=== PATIENT | male | born 1980 | race Caucasian/White ===

== ENCOUNTER 2016-07-12 10:26 | Emergency (ER) | payer OTHER ==
[~2016-07-12] VITALS: Ht 175.3 cm; Wt 173.0 kg
[2016-07-12 10:38] VITALS: Ht 175.3 cm; Wt 173.0 kg
[2016-07-12 12:47] LABS: ADD SCAN DIFF NO
--- NOTE | 2016-07-12 12:52 | ERD ---
ER Documentation Chief Complaint Date/Time DATE: 07/12/16 TIME: 12:48 Chief Complaint COUGH & SOB SINCE TUESDAY HPI Patient is a 35-year-old male who presents to the ED with palpitations and shortness of breath on and off for the last 2 days. He states that on Tuesday developed soreness in his arm and left-sided abdomen and chest. He states that he feels a "flutter" occasionally. He denies any exacerbating factors. He states that he does have anxiety and has had panic attacks in the past. Denies nausea, vomiting or diarrhea. Denies fever or night sweats. He states that he has a family history of diabetes but denies any heart conditions in the family but is concerned that he might have pre diabetes. He states that he has gained a lot of weight in the last year. He denies leg pain or swelling, decenies recent surgery or travel. Denies numbness or tingling. Denies abdominal pain. ROS All systems reviewed and are negative except as per history of present illness. Medications Home Meds Active Scripts Naproxen* (Naprosyn*) 500 Mg Tablet, 500 MG PO BID Y for PAIN AND/OR INFLAMMATION, #30 TAB Prov:ALISON COULTER PA-C 07/12/16 PMhx/Soc Medical and Surgical Hx: pt denies Medical Hx, pt denies Surgical Hx History of Surgery: No Anesthesia Reaction: No Hx Neurological Disorder: No Hx Respiratory Disorders: No Hx Cardiac Disorders: No Hx Psychiatric Problems: No Hx Miscellaneous Medical Probl: Yes (OBESITY) Hx Alcohol Use: No Hx Substance Use: No Hx Tobacco Use: No Smoking Status: Never smoker FmHx Family History: diabetes Physical Exam Vitals Vital Signs Date Time Temp Pulse Resp B/P Pulse Ox O2 Delivery O2 Flow Rate FiO2 07/12/16 14:02 98.7 77 18 154/88 100 Room Air 07/12/16 10:38 98.7 79 20 173/90 100 Physical Exam GENERAL: Well-developed, well-nourished male. Appears in no acute distress. HEAD: Normocephalic, atraumatic. EYES: Pupils are equally reactive bilaterally. EOMs grossly intact. No conjunctival erythema. ENT: Moist mucous membranes. No uvula deviation. No kissing tonsils. No exudates. NECK: Supple. No lymphadenopathy or thyromegaly. No meningismus. negative kernig. negative brudinski. LUNG: Clear to auscultation bilaterally. No rhonchi, wheezing, rales or coarse breath sounds. HEART: Regular rate and rhythm. No murmurs, rubs or gallops. Extremities: Equal pulses bilaterally. No peripheral clubbing, cyanosis or edema. No unilateral leg swelling. negative tutu sign. NEUROLOGIC: Alert and oriented. Moving all four extremities. 5/5 strength in all extremities. Normal speech. Steady gait. SKIN: Normal color. Warm and dry. No rashes or lesions. Capillary refill < 2 seconds Result Diagram: 07/12/16 1220 07/12/16 1220 Results 24 hrs Laboratory Tests Test 07/12/16 12:20 White Blood Count 9.010^3/ul Red Blood Count 4.9910^6/ul Hemoglobin 14.4g/dl Hematocrit 43.9% Mean Corpuscular Volume 88.0fl Mean Corpuscular Hemoglobin 28.9pg Mean Corpuscular Hemoglobin Concent 32.8g/dl Red Cell Distribution Width 13.1% Platelet Count 92241^3/UL Mean Platelet Volume 9.6fl Neutrophils % 64.1% Lymphocytes % 23.7% Monocytes % 8.5% Eosinophils % 3.0% Basophils % 0.4% Nucleated Red Blood Cells % 0.0/100WBC Neutrophils # 5.810^3/ul Lymphocytes # 2.110^3/ul Monocytes # 0.810^3/ul Eosinophils # 0.310^3/ul Basophils # 0.010^3/ul Nucleated Red Blood Cells # 0.010^3/ul Sodium Level 141mmol/L Potassium Level 4.1mmol/L Chloride Level 102mmol/L Carbon Dioxide Level 26mmol/L Anion Gap 17 Blood Urea Nitrogen 16mg/dl Creatinine 0.91mg/dl Glucose Level 95mg/dl Calcium Level 9.6mg/dl Procedures/MDM ER COURSE: I kept the patient and/or family informed of laboratory and diagnostic imaging results throughout the emergency room course. IMAGING STUDIES EKG performed, read by Dr. [email or web address] 66 bpm, normal sinus rhythm, normal axis, no acute ST segment changes, no T wave inversion [place] [id number] Radiology Main Line: [phone] DIAGNOSTIC IMAGING REPORT Patient: JACLYN CHOUDHARY : 1980 Age: 35 Sex: M MR #: [id number] DOS: 07/12/16 1204 Ordering MD: ALISON COULTER PA-C Location: [facility] Room/Bed: PROCEDURE: XR Chest. CLINICAL INDICATION: Shortness of breath/palpitations TECHNIQUE: Chest PA. COMPARISON: No comparison available. FINDINGS: The mediastinal structures are unremarkable. The heart is normal in size and configuration. The pulmonary vascularity is normal. The lung disla are unremarkable. No consolidation is identified. The pleural spaces are unremarkable. The axial skeleton is unremarkable. IMPRESSION: No active intrathoracic disease. RPTAT: HGDB .Vj Dawkins MD, MD Date Time Electronically viewed and signed by .Vj Dawkins MD, MD on 07/12/2016 13:17 .B/ CC: ALISON COULTER PA-C MEDICAL DECISION MAKING: This is a 35-year-old male who presents with shortness of breath and muscle soreness and stress on and off 2 days. Vital signs were reviewed. Patient is afebrile. Patient is not hypoxic. Patient also complains of palpitations. His EKG was unremarkable. His x-ray was unremarkable. His blood work was within normal limits, no signs of diabetes, hypo-or hyperglycemia, anemia or electrolyte disturbances. Low suspicion for ACS, PE, AAA, dissection, DVT. Low suspicion for pneumonia, PE, pneumothorax, ACS, epiglottitis, obstruction, TB, pertussis, meningitis, sepsis. Low suspicion for cardiac emergency. Low suspicion for dislocation, fracture, septic joint, compartment syndrome, osteomyelitis, avascular necrosis, DVT, Achilles tendon rupture, cellulitis. At this time, unable to rule out any tendon and ligament injuries. DISCHARGE: At this time, patient is stable for discharge and outpatient management with no new complaints during the ER course. Patient was sent home with Ketan, copy of imaging studies as well as education on diabetes prevention. Discussed at length with patient nutrition education and lifestyle management.. Patient will be discharged home with instructions to recheck for new or worsening symptoms such as fever, nausea, weakness, LOC and to follow up with primary care in the next 1-2 days. Patient was advised to return to the ER for any new or worsening symptoms. Plan was discussed and patient and/or family understands and agrees. Home instructions were given. Departure Diagnosis: Primary Impression: Shortness of breath Condition: Stable ALISON COULTER PA-C Jul 12, 2016 12:52
[2016-07-12 12:57] LABS: BASOPHILS % 0.4 % (0.0-2.0); EOSINOPHILS # 0.3 10^3/ul (0.0-0.5); HEMATOCRIT 43.9 % (42.0-52.0); HEMOGLOBIN 14.4 g/dl (14.0-18.0); LYMPHOCYTES # 2.1 10^3/ul (0.8-2.9); LYMPHOCYTES % 23.7 % (15.0-51.0); MEAN CORPUSCULAR HEMOGLOBIN 28.9 pg (29.0-33.0); MEAN CORPUSCULAR HGB CONC 32.8 g/dl (32.0-37.0); MEAN PLATELET VOLUME 9.6 fl (7.4-10.4); MONOCYTE # 0.8 10^3/ul (0.3-0.9); MONOCYTES % 8.5 % (0.0-11.0); NEUTROPHIL # 5.8 10^3/ul (1.6-7.5); NEUTROPHILS % 64.1 % (39.0-77.0); PLATELET COUNT 289 10^3/UL (140-415); RED BLOOD COUNT 4.99 10^6/ul (4.70-6.10); RED CELL DISTRIBUTION WIDTH 13.1 % (11.5-14.5)
[2016-07-12 13:15] LABS: POTASSIUM 4.1 mmol/L (3.5-5.1)
[2016-07-12 13:17] LABS: CREATININE 0.91 mg/dl (0.61-1.24)
[2016-07-12 13:18] LABS: CALCIUM 9.6 mg/dl (8.4-10.2)
--- NOTE | 2016-07-12 13:18 | RADRPT ---
PROCEDURE: XR Chest. CLINICAL INDICATION: Shortness of breath/palpitations TECHNIQUE: Chest PA. COMPARISON: No comparison available. FINDINGS: The mediastinal structures are unremarkable. The heart is normal in size and configuration. The pu lmonary vascularity is normal. The lung disla are unremarkable. No consolidation is identified. The pleural spaces are unremarkable. The axial skeleton is unremarkable. IMPRESSION: No active intrathoracic disease. RPTAT: HGDB .Vj Dawkins MD, MD Date Time Electronically viewed and signed by .Vj Dawkins MD, on 07/12/2016 13:17 .B/
[2016-07-12] MEDS ORDERED: NAPR-260 PO (13:39)
[2016-07-12 14:02] VITALS: BP 154/88; PULSE 77; RESP 18; TEMP 98.7
== END 2016-07-12 14:10 | disposition home or self-care (01) ==
LOC: FTE 10:26
DX: R06.02 Shortness of breath (principal); E66.9 Obesity, unspecified; Z68.43 Body mass index [BMI] 50.0-59.9, adult
CPT/HCPCS: 71010; 80048; 85025; 93005

== ENCOUNTER 2016-09-10 07:18 | Emergency (ER) | payer OTHER ==
[~2016-09-10] VITALS: Ht 180.3 cm; Wt 173.0 kg
[~2016-09-10 07:18] MED LIST: NAPR-260 PO
[2016-09-10 07:23] VITALS: Ht 180.3 cm; Wt 173.0 kg
[2016-09-10 08:02] LABS: ADD SCAN DIFF NO
[2016-09-10 08:03] LABS: BASOPHILS % 0.4 % (0.0-2.0); EOSINOPHILS # 0.3 10^3/ul (0.0-0.5); EOSINOPHILS % 3.3 % (0.0-7.0); HEMOGLOBIN 13.6 g/dl (14.0-18.0); LYMPHOCYTES # 2.1 10^3/ul (0.8-2.9); LYMPHOCYTES % 25.8 % (15.0-51.0); MEAN CORPUSCULAR HGB CONC 33.2 g/dl (32.0-37.0); MEAN CORPUSCULAR VOLUME 87.4 fl (82.0-101.0); MEAN PLATELET VOLUME 9.9 fl (7.4-10.4); MONOCYTE # 0.8 10^3/ul (0.3-0.9); MONOCYTES % 9.1 % (0.0-11.0); PLATELET COUNT 251 10^3/UL (140-415); RED BLOOD COUNT 4.69 10^6/ul (4.70-6.10); RED CELL DISTRIBUTION WIDTH 12.6 % (11.5-14.5); WHITE BLOOD COUNT 8.2 10^3/ul (4.8-10.8)
--- NOTE | 2016-09-10 08:10 | RADRPT ---
PROCEDURE: XR Chest. CLINICAL INDICATION: chest pain TECHNIQUE: Single frontal view of the chest was obtained COMPARISON: 07/12/2016 FINDINGS: The heart and mediastinum are within normal limits. The lungs are clear. There is no pleural effusion or pneumothorax. RPTAT: AA IMPRESSION: No acute disease. .Donte Lambert MD, MD Date Time Electronically viewed and signed by .Donte Lambert MD, on 09/10/2016 08:09 .S/
[2016-09-10 08:29] LABS: ANION GAP 11 (8-16); BLOOD UREA NITROGEN 17 mg/dl (7-20); CALCIUM 8.9 mg/dl (8.4-10.2); CARBON DIOXIDE 27 mmol/L (21-31); CHLORIDE 107 mmol/L (97-110); CREATININE 1.03 mg/dl (0.61-1.24); GLUCOSE 100 mg/dl (70-220); POTASSIUM 4.3 mmol/L (3.5-5.1); SODIUM 141 mmol/L (135-144)
[2016-09-10 08:42] LABS: TROPONIN-I < 0.012 ng/ml (0.00-0.12)
--- NOTE | 2016-09-10 09:12 | ERD ---
ER Documentation Chief Complaint Date/Time DATE: 09/10/16 TIME: 0725 Chief Complaint PALPITATIONS AND LEFT NECK PAIN SINCE THIS AM. HPI 35-year-old male presents to the emergency department stating that he is having a "fluttering" feeling in his chest that he has had for the last 2 weeks or so. He was initially seen in our emergency department for shortness of breath and was discharged home, however he continues to have the sensation in his chest. He also states he has a discomfort in his neck that is worse when he moves his neck. However, this is not a radiating discomfort from his chest. He reports no short further shortness of breath at this time, no anginal type chest pain, no fevers, no chills. ROS All systems reviewed and are negative except as per history of present illness. Medications Home Meds Active Scripts Naproxen* (Naprosyn*) 500 Mg Tablet, 500 MG PO BID Y for PAIN AND/OR INFLAMMATION, #30 TAB Prov:ALIOSN COULTER PA-C 07/12/16 Allergies Allergies: Coded Allergies: No Known Allergy (Unverified , 09/10/16) PMhx/Soc History of Surgery: Yes (Cholecystectomy) Anesthesia Reaction: No Hx Neurological Disorder: No Hx Respiratory Disorders: Yes (Asthma) Hx Cardiac Disorders: No Hx Psychiatric Problems: No Hx Miscellaneous Medical Probl: Yes (Obesity, GERD) Hx Alcohol Use: No Hx Substance Use: No Hx Tobacco Use: No Smoking Status: Never smoker FmHx Noncontributory for chief complaint Physical Exam Vitals Vital Signs Date Time Temp Pulse Resp B/P Pulse Ox O2 Delivery O2 Flow Rate FiO2 09/10/16 08:35 67 16 141/74 98 Room Air 09/10/16 07:45 69 17 144/69 98 Room Air 09/10/16 07:42 0 09/10/16 07:23 98.5 80 18 100 Physical Exam GENERAL: Patient is a morbidly obese male in no acute distress HEENT: Pupils equal, round, and reactive to light. EOMI. There is no scleral icterus. NECK: C-spine is soft and supple, there is no meningismus. There is no cervical lymphadenopathy. LUNGS: Clear to auscultation bilaterally. There are no rales, wheezes or rhonchi. HEART: Regular rate and rhythm, no murmurs, clicks, rubs or gallops. ABDOMEN: Soft, non-tender, non-distended. There are bowel sounds in all four quadrants. No rebound or guarding. EXTREMITIES: There is no peripheral cyanosis or edema. No focal swelling or erythema. NEURO: The patient moves all four extremities with 5/5 strength. Cranial nerves II - XII are intact. Normal gait. Alert and oriented SKIN: There is no apparent rash or petechiae. HEME/LYMPHATIC: There is no evidence of excessive bruising or lymphedema. PSYCHIATRIC: The patient does not appear anxious or depressed. Result Diagram: 09/10/16 0754 09/10/16 0754 Results 24 hrs Laboratory Tests Test 09/10/16 07:54 White Blood Count 8.210^3/ul Red Blood Count 4.6910^6/ul Hemoglobin 13.6g/dl Hematocrit 41.0% Mean Corpuscular Volume 87.4fl Mean Corpuscular Hemoglobin 29.0pg Mean Corpuscular Hemoglobin Concent 33.2g/dl Red Cell Distribution Width 12.6% Platelet Count 22911^3/UL Mean Platelet Volume 9.9fl Neutrophils % 61.0% Lymphocytes % 25.8% Monocytes % 9.1% Eosinophils % 3.3% Basophils % 0.4% Nucleated Red Blood Cells % 0.0/100WBC Neutrophils # 5.010^3/ul Lymphocytes # 2.110^3/ul Monocytes # 0.810^3/ul Eosinophils # 0.310^3/ul Basophils # 0.010^3/ul Nucleated Red Blood Cells # 0.010^3/ul Sodium Level 141mmol/L Potassium Level 4.3mmol/L Chloride Level 107mmol/L Carbon Dioxide Level 27mmol/L Anion Gap 11 Blood Urea Nitrogen 17mg/dl Creatinine 1.03mg/dl Glucose Level 100mg/dl Calcium Level 8.9mg/dl Troponin I < 0.012ng/ml Procedures/MDM Patient was taken to a room, seen and evaluated. Comfort measures were initiated. Diagnostic tests were ordered and reviewed. 3 LEAD RHYTHM STRIP: Normal sinus rhythm without ectopy EK lead EKG reviewed by myself: Normal Sinus Rhythm Normal [place] and intervals No ST elevation, depression, or T wave inversion Impression: Normal EKG RADIOLOGY: reviewed with the radiologist REEVALUATION: Patient has remained comfortable in the emergency department MEDICAL DECISION MAKING: This is a 35-year-old male presents with palpitations. At this time, his EKG and rhythm strips have demonstrated no signs of dysrhythmia or preexcitation. Furthermore, he has no EKG changes suggestive of ischemia and given his symptomatology, I do not believe this is an ischemic presentation. At this time, patient is reassured with no further evidence based on his lab tests or clinical examination of significant decompensated medical illness. Patient appears to be appropriate for outpatient care at this time. Departure Diagnosis: Primary Impression: Palpitations Condition: Stable Patient Instructions: Palpitations Referrals: TIRSO PENA (PCP) Additional Instructions: See your doctor for follow-up as discussed. Take a copy of your test results, if appropriate, to this follow-up visit. See your doctor or return here if your symptoms do not improve as expected. At any time, please return to the emergency department for any change or worsening in her symptoms. LENA SALMERON Sep 10, 2016 09:12
[2016-09-10 09:27] VITALS: BP 141/65; PULSE 65; RESP 19; TEMP 98.2
== END 2016-09-10 09:38 | disposition home or self-care (01) ==
LOC: E/R 07:18 → EDBD 07:18 → E/R 09:38
DX: R00.2 Palpitations (principal); J45.909 Unspecified asthma, uncomplicated; E66.9 Obesity, unspecified; Z68.43 Body mass index [BMI] 50.0-59.9, adult
CPT/HCPCS: 36415; 71010; 80048; 84484; 85025; 93005; Z7502